=== PATIENT | female | born 1935 | race Caucasian/White ===

== ENCOUNTER 2016-08-02 07:41 | Inpatient (IN) | payer MEDICARE ==
[2016-08-02] MEDS ORDERED: Diazepam TAB(*) 5 MG ONE (08:50)
[2016-08-02] MEDS ORDERED: Clindamycin 900 MG IVPREMIX(* 900 MG/50 ML SDV IV ONE (09:00)
[2016-08-02] MEDS ORDERED: fentaNYL* 50 MCG/ML 2 ML VIAL (100 MCG VIAL) ONE (09:09)
[2016-08-02] MEDS ORDERED: Midazolam* 1 MG/ML 5 ML VIAL (5 MG) ONE (09:09)
[2016-08-02] MEDS ORDERED: Lidocaine 1% INJ* 10 MG/ML 30 ML SDV ONE (09:10)
[2016-08-02] MEDS ORDERED: Acetaminophen TAB* 325 MG PO PRN (10:29)
[2016-08-02] MEDS ORDERED: oxyCODONE/Acetamin 5/325 MG* TAB PO PRN (10:29)
--- NOTE | 2016-08-02 12:16 | RAD ---
HISTORY: Status post device implant COMPARISONS: June 17, 2014 VIEWS:1: Single frontal portable view of the chest at 11:25 AM FINDINGS: LINES AND TUBES: A left-sided pacemaker is noted. CARDIOMEDIASTINAL SILHOUETTE: The cardiomediastinal silhouette is normal for portable technique. PLEURA: The costophrenic angles are sharp. No pleural abnormalities are noted. There is no appreciable pneumothorax. LUNG PARENCHYMA: There is hyperinflation. ABDOMEN: The upper abdomen is clear. There is no subphrenic gas. BONES AND SOFT TISSUES: No bone or soft tissue abnormalities are noted. IMPRESSION: LEFT-SIDED PACEMAKER. HYPERINFLATION. NO ACTIVE CARDIOPULMONARY DISEASE.
[2016-08-02] MEDS: Clindamycin CAP* 150 MG PO SCH ×2 (16:13→21:20)
[2016-08-02] MEDS: Diltiazem TAB* 30 MG PO SCH (21:19)
--- NOTE | 2016-08-03 03:44 | OP ---
DATE OF OPERATION: 08/02/16 - ROOM #431 DATE OF : 37 SURGEON: Tylor Narvaez MD ANESTHESIA: Local anesthesia with conscious sedation. PRE-OP DIAGNOSES: 1. Sick sinus syndrome. 2. Atrial fibrillation. POST-OP DIAGNOSES: 1. Sick sinus syndrome. 2. Atrial fibrillation. OPERATIVE PROCEDURE: Dual-chamber pacemaker implantation. ESTIMATED BLOOD LOSS: Nil. COMPLICATIONS: None. INDICATIONS: The patient is an 81-year-old female with a history of atrial fibrillation. The patient has been followed by Dr. Means. The patient has been having episodes of atrial fibrillation with rapid ventricular response as well as bradycardia at night, which limits medical therapy. Permanent pacemaker was recommended for maximization of medical therapy. DESCRIPTION OF PROCEDURE: The patient was brought to the operating room in a fasting state. Informed consent had been obtained prior to procedure. All labs have been reviewed. The patient was placed supine on the procedure table. Her left deltopectoral area was cleaned and draped in usual fashion. 1% lidocaine was used for local anesthesia. Under ultrasound guidance, the axillary vein was entered by a modified Seldinger technique and a guidewire was placed. A second guidewire was placed in the same technique. A 4 cm incision was made in the pectoral area and blunt dissection was carried down to the pectoral fascia. A small pocket was fashioned for the pacemaker. Over the first guidewire, a 7-Bruneian sheath introducer was placed through which a right ventricular lead was advanced to the RV apex. The right ventricular lead is a Medtronic model 5076 serial #[id number]. It had an R wave sensitivity of 6.1, impedance 885 ohms, threshold 1 volts at 0.5 mV. The ventricular lead was then sutured to the pectoral fascia using 0 silk. Over the second guidewire, a 7-Bruneian sheath introducer was placed through which a right atrial lead was advanced to the high right atrium. The right atrial lead was a Medtronic model 5076 serial #[id number]. It had a P wave sensitivity of 4.7, impedance 720 ohms. Thresholds of 1.4 volt at 0.5 milliseconds. The atrial lead was then sutured to the pectoral fascia using 0 silk. The pocket was flushed with normal saline. A new generator was attached appropriately to the atrioventricular leads. The generator is a Medtronic model A2DR01 serial #[id number]. The device was placed into pocket. The surgical incision was closed in 2 layers. The subcutaneous tissue was closed with 2-0 and 3-0 absorbable sutures. The skin was closed with nidhi. The patient was returned to the holding area in stable condition. CC: Jersey Means MD* [id number]/[facility] #: [id number] MTDD
--- NOTE | 2016-08-03 08:06 | RAD ---
Indication: Pacemaker placement. 2 views of the chest including dual energy PA views demonstrates pacemaker leads in place. No pneumothorax is noted. Hyperinflated lung nina are noted. IMPRESSION: Pacemaker in place with no evidence of pneumothorax. Hyperinflated lung nina are noted.
[2016-08-03] MEDS ORDERED: Levothyroxine TAB* 100 MCG TAB PO SCH (09:00)
[2016-08-03] MEDS: Diltiazem TAB* 30 MG PO SCH (09:17)
[2016-08-03] MEDS: Clindamycin CAP* 150 MG PO SCH ×2 (09:17→14:04)
[2016-08-03 12:23] VITALS: BP 105/66
--- NOTE | 2016-08-04 12:42 | DS ---
DISCHARGE SUMMARY: DATE OF ADMISSION: 08/02/16 DATE OF DISCHARGE: 08/03/16 HISTORY OF PRESENT ILLNESS AND HOSPITAL COURSE: See Dr. Narvaez's complete note for full details. Ms. Jovel is an 81-year-old woman followed by Dr. Means for atrial fibrillation. She has been on rate-lowering medications, which led to bradycardia on Holter and she was referred for elective pacemaker implantation. The patient underwent a dual-chamber device implantation, 08/02/16, without complications. Overnight, the patient has been a little frustrated by her shoulder immobilizer , but denied shortness of breath or any trouble ambulating. She has had a little bit of trouble sleeping and the patient was present with her son and the patient had multiple questions about the device and activities afterwards and use of her shoulder immobilizer. PAST MEDICAL HISTORY: AFib/flutter with tachy-blari syndrome, dyslipidemia, hypothyroid disease, tuberculosis with treatment in the , Hurthle cell adenoma. PAST SURGICAL HISTORY: Includes partial thyroidectomy in 2009, arthroscopy of the knee. ALLERGIES: Include PENICILLIN. PHYSICAL EXAMINATION: On exam the day of discharge, the patient is 5 feet 8 inches, weighs 153 pounds with a BMI of 23, blood pressure was 105/66, pulse was 74, sats 98% on room air, and temperature 97.7, afebrile since admission. General Appearance: A tall, lean elderly woman seated in bed, a little bit anxious with lots of questions, but did not appear in acute medical distress. Psychologically, as mentioned a little anxious, but pleasant and cooperative. Neurologically, awake, alert, and oriented to person and place. Skin: Warm and dry. Incision in the left subclavian fossa free of hematoma, ecchymosis, or any signs of infection. No erythema. HEENT: Pupils are equal and round. Mucous membranes moist. Neck: Without increased JVP appreciated. Breath sounds are clear throughout in all lung nina. No wheezes, rales, or rhonchi. Coronary: S1, S2 regular. No murmurs or rubs. Abdomen: Active bowel sounds. Lower extremities were free of edema. DIAGNOSTIC STUDIES/LAB DATA: A 12-lead ECG today shows atrial pacing alternating with kootenai QRS and dual-chamber pacing. Monitor shows predominantly normal sinus rhythm 75 beats a minute. Chest x-ray today confirms both leads appear intact. No pneumothorax. Good lead placement. Pacemaker interrogation today confirmed she has a Medtronic Advisa DR device, she atrially paces 11% of the time, ventricularly paces 1.4% of the time. She is in AAI/DDD mode. Atrial sensing is 3.4 with an atrial lead impedance of 456 ohms and atrial pacing threshold of 0.5 volts at 0.4 milliseconds. Ventricular lead sensing is 10.9 millivolts with a ventricular impedance of 432 ohms and ventricular pacing threshold of 0.75 volts at 0.4 milliseconds. DISCHARGE MEDICATIONS: The patient will be discharged on: 1. Diltiazem 30 mg b.i.d.. 2. Clindamycin 150 mg t.i.d. 3. Tylenol p.r.n. 4. Synthroid 100 mcg a day. In addition to continuing her multiple supplements: 1. Vitamin D. 2. Colostrum. 3. Krill oil. 4. Methylsulfonylmethane. 5. MultiVites. 6. Probiotic. The patient will additionally resume Xarelto 20 mg a day. DISCHARGE FOLLOWUP: The patient will follow up with Dr. Narvaez in 1 week for wound check and following this, she can follow up with Dr. Means for her regular cardiology care. CC: Dr. Peewee Arnett; Dr. Tylor Narvaez; Dr. Means* [id number]/[facility] #: [id number] MTDD
== END 2016-08-03 14:10 | disposition home or self-care (01) | DRG 244 ==
LOC: CHICATH 07:41 → MEDTELE 10:29
PROVIDERS: ADMIT Specialist; ATTEND Specialist
PROC: 02HK3JZ Insertion of Pacemaker Lead into Right Ventricle, Percutaneous Approach (ICD-10-PCS; 2016-08-02)
PROC: 02H63JZ Insertion of Pacemaker Lead into Right Atrium, Percutaneous Approach (ICD-10-PCS; 2016-08-02)
PROC: 4B02XSZ Measurement of Cardiac Pacemaker, External Approach (ICD-10-PCS; 2016-08-02)
PROC: 0JH606Z Insertion of Pacemaker, Dual Chamber into Chest Subcutaneous Tissue and Fascia, Open Approach (ICD-10-PCS; principal; 2016-08-02 09:00)
DX: I49.5 Sick sinus syndrome (principal); I48.91 Unspecified atrial fibrillation; Z88.0 Allergy status to penicillin; E78.5 Hyperlipidemia, unspecified; E03.9 Hypothyroidism, unspecified; Z87.440 Personal history of urinary (tract) infections; Z86.11 Personal history of tuberculosis; Z80.0 Family history of malignant neoplasm of digestive organs; Z82.3 Family history of stroke
CPT/HCPCS: 33208; 71010; 71020; 93005; A9270-GY; C1785; C1898; J2250; J3010

== ENCOUNTER 2018-10-06 18:29 | Emergency (ER) | payer MEDICARE ==
[2018-10-06 19:30] LABS: ABS Basophils 0 10^3/ul (0-0.2); ABS Eosinophils 0 10^3/ul (0-0.6); ABS Lymphocytes 1.2 10^3/ul (1.0-4.8); ABS Neutrophils 7.1 10^3/ul (1.5-7.7); ABS Nucleated RBC 0 10^3/ul; Eosinophil % 0.3 %; Hematocrit 41 % (35-47); Hemoglobin 13.5 g/dl (12.0-16.0); Lymphocyte % 12.9 %; Mean Corpuscular HGB Conc 33 g/dl (31-36); Mean Corpuscular Hemoglobin 30 pg (27-31); Mean Corpuscular Volume 91 fL (80-97); Mean Platelet Volume 9.4 fL (7.4-10.4); Nucleated Red Blood Cells % 0; Platelet Count 154 10^3/ul (150-450); Red Blood Count 4.49 10^6/ul (4.00-5.40); Red Cell Distribution Width 14 % (10.5-15); White Blood Count 9.3 10^3/ul (3.5-10.8)
[2018-10-06 19:48] LABS: Albumin 3.5 g/dL (3.2-5.2); Albumin/Globulin Ratio 1.1 (1-3); C Reactive Protein 68.93 mg/L (<8.01); Calcium 8.8 mg/dL (8.6-10.3); EGFR African American 54.7 (>60); EGFR Non-African American 45.2 (>60); Globulin 3.2 g/dL (2-4); Magnesium 2.4 mg/dL (1.9-2.7); Potassium 4.5 mmol/L (3.5-5.0); Total Bilirubin 0.4 mg/dL (0.2-1.0); Total Protein 6.7 g/dL (6.4-8.9)
[2018-10-06] MEDS ORDERED: NS 0.9% 500 ML* 500 ML IV ONE (19:50)
--- NOTE | 2018-10-06 20:02 | ED ---
Altered Mental Status - HPI Summary HPI Summary: Patient sent from [facility] for confusion and increased urinary frequency with incontinence. Patient herself unaware that she is confused, states increased urinary frequency and incontinence 2 days, which she states is common when she has a urinary tract infection. Also complains of dry cough, sleepiness 2 days. Patient denies fever, sore throat, CP, SOB, N/V/D, abdominal pain, change in BM, vaginal symptoms. Medical history is hypothyroid , A. fib, UTI. - History Of Current Complaint Chief Complaint: EDUrogenitalProblems Stated Complaint: CONFUSION PER EMS Time Seen by Provider: 10/06/18 18:50 Hx Obtained From: Patient Onset/Duration: Unknown Timing: Constant Severity Initially: Mild Severity Currently: Mild Character: Confusion Aggravating Factor(s): Nothing Alleviating Factor(s): Nothing Associated Signs And Symptoms: Positive: Negative - Allergies/Home Medications Allergies/Adverse Reactions: Allergies Allergy/AdvReac Type Severity Reaction Status Date / Time Penicillins Allergy Rash Verified 10/06/18 18:45 Home Medications: Home Medications DEBROX 6.5% Otic* 5 drop BOTH EARS MONTHLY 10/06/18 [History Confirmed 10/06/18] Milk of Magnesia 1 dose PO DAILY 10/06/18 [History Confirmed 10/06/18] Preservision Areds 2 Softgel 1 dose PO DAILY 10/06/18 [History Confirmed ] PMH/Surg Hx/FS Hx/Imm Hx Endocrine/Hematology History: Reports: Hx Thyroid Disease - Hypothyroid Denies: Hx Anticoagulant Therapy, Hx Diabetes Cardiovascular History: Reports: Hx Pacemaker/ICD Denies: Hx Hypertension Respiratory History: Denies: Hx Asthma, Hx Chronic Obstructive Pulmonary Disease (COPD) History: Reports: Other Problems/Disorders - UTI Denies: Hx Renal Disease Sensory History: Denies: Hx Eye Prosthesis Opthamlomology History: Denies: Hx Legally Blind EENT History: Denies: Hx Deafness Neurological History: Denies: Hx Dementia, Hx Seizures Psychiatric History: Denies: Hx Autism, Hx Substance Abuse - Surgical History Surgery Procedure, Year, and Place: Right knee arthoscopic surgery to repair torn meniscus. Excision of benign lump under left collar bone - Immunization History Date of Tetanus Vaccine: Up to date Date of Influenza Vaccine: None, philosophically opposed Infectious Disease History: No Infectious Disease History: Denies: Hx Hepatitis, Hx Human Immunodeficiency Virus (HIV), History Other Infectious Disease, Traveled Outside the [place] in Last 30 Days - Social History Alcohol Use: None Substance Use Type: Reports: None Smoking Status (MU): Never Smoked Tobacco Review of Systems Constitutional: Negative Eyes: Negative ENT: Negative Cardiovascular: Negative Positive: Cough Gastrointestinal: Negative Positive: frequency, incontinence Musculoskeletal: Negative Skin: Negative Neurological: Negative Psychological: Normal All Other Systems Reviewed And Are Negative: Yes Physical Exam - Summary Physical Exam Summary: Neuro exam normal. Abdomen soft nontender. Lungs clear to auscultation bilaterally. RRR. Triage Information Reviewed: Yes Vital Signs On Initial Exam: Initial Vitals Pulse Resp Pulse Ox 81 18 93 10/06/18 18:40 10/06/18 18:40 10/06/18 18:40 Vital Signs Reviewed: Yes Appearance: Positive: Well-Appearing Skin: Positive: Warm Head/Face: Positive: Normal Head/Face Inspection Eyes: Positive: Normal Neck: Positive: Supple Respiratory/Lung Sounds: Positive: Clear to Auscultation Cardiovascular: Positive: Normal Abdomen Description: Positive: Nontender Musculoskeletal: Positive: Normal Neurological: Positive: Normal Psychiatric: Positive: Normal AVPU Assessment: Alert - Keerthi Coma Scale Best Eye Response: 4 - Spontaneous Best Motor Response: 6 - Obeys Commands Best Verbal Response: 5 - Oriented Coma Scale Total: 15 Diagnostics - Vital Signs Vital Signs Temp Pulse Resp BP Pulse Ox 10/06/18 19:50 79 12 110/65 94 10/06/18 19:11 74 28 119/63 91 10/06/18 19:09 75 13 93 10/06/18 18:42 100.7 F 77 18 98/63 93 10/06/18 18:41 78 18 98/63 93 10/06/18 18:40 81 18 93 - Laboratory Lab Results: Lab Results 10/06/18 10/06/18 10/06/18 Range/Units 19:25 19:25 19:25 WBC 9.3 (3.5-10.8) 10^3/ul RBC 4.49 (4.00-5.40) 10^6/ul Hgb 13.5 (12.0-16.0) g/dl Hct 41 (35-47) % MCV 91 (80-97) fL MCH 30 (27-31) pg MCHC 33 (31-36) g/dl RDW 14 (10.5-15) % Plt Count 154 (150-450) 10^3/ul MPV 9.4 (7.4-10.4) fL Neut % (Auto) 76.0 % Lymph % (Auto) 12.9 % [place] % (Auto) 10.4 % Eos % (Auto) 0.3 % Baso % (Auto) 0.4 % Absolute Neuts (auto) 7.1 (1.5-7.7) 10^3/ul Absolute Lymphs (auto) 1.2 (1.0-4.8) 10^3/ul Absolute Monos (auto) 1.0 H (0-0.8) 10^3/ul Absolute Eos (auto) 0 (0-0.6) 10^3/ul Absolute Basos (auto) 0 (0-0.2) 10^3/ul Absolute Nucleated RBC 0 10^3/ul Nucleated RBC % 0 Sodium 137 (135-145) mmol/L Potassium 4.5 (3.5-5.0) mmol/L Chloride 104 (101-111) mmol/L Carbon Dioxide 28 (22-32) mmol/L Anion Gap 5 (2-11) mmol/L BUN 31 H (6-24) mg/dL Creatinine 1.15 H (0.51-0.95) mg/dL Est GFR ( Amer) 54.7 (>60) Est GFR (Non-Af Amer) 45.2 (>60) BUN/Creatinine Ratio 27.0 H (8-20) Glucose 132 H (70-100) mg/dL Lactic Acid 0.8 (0.5-2.0) mmol/L Calcium 8.8 (8.6-10.3) mg/dL Magnesium 2.4 (1.9-2.7) mg/dL Total Bilirubin 0.40 (0.2-1.0) mg/dL AST 26 (13-39) U/L ALT 21 (7-52) U/L Alkaline Phosphatase 78 (34-104) U/L Troponin I 0.00 (<0.04) ng/mL C-Reactive Protein 68.93 H (<8.01) mg/L Total Protein 6.7 (6.4-8.9) g/dL Albumin 3.5 (3.2-5.2) g/dL Globulin 3.2 (2-4) g/dL Albumin/Globulin Ratio 1.1 (1-3) TSH Pending Result Diagrams: 10/06/18 19:25 10/06/18 19:25 Lab Statement: Any lab studies that have been ordered have been reviewed, and results considered in the medical decision making process. Altered Mental Statu Course/Dx - Course Course Of Treatment: Patient sent from [facility] for confusion and increased urinary frequency with incontinence. Patient herself unaware that she is confused, states increased urinary frequency and incontinence 2 days, which she states is common when she has a urinary tract infection. Also complains of dry cough, sleepiness 2 days. Patient denies fever, sore throat , CP, SOB, N/V/D, abdominal pain, change in BM, vaginal symptoms. Medical history is hypothyroid, A. fib, UTI. Physical exam: Patient alert and oriented. Response coherently and appropriately though slowly. Neuro exam normal. Abdomen soft nontender. Lungs clear to auscultation bilaterally. RRR. Vital signs within normal limits. CR 1.15. 500ml normal saline administered. Labs unremarkable. Chest x-ray unremarkable. EKG sinus rhythm. Patient has pacemaker. UA positive for UTI. Started on Bactrim here in the ED. Rx for same. Discharge patient to [facility]. - Diagnoses Provider Diagnoses: UTI (urinary tract infection) Discharge - Sign-Out/Discharge Documenting (check all that apply): Patient Departure Patient Received Moderate/Deep Sedation with Procedure: No - Discharge Plan Condition: Stable Disposition: HOME Patient Education Materials: Urinary Tract Infection in Women (ED) Forms: *Gen. Provider Communication Referrals: Peewee Arnett MD [Primary Care Provider] - Additional Instructions: Take antibiotics as directed. Follow-up with primary care. Return to the ED for any new or worsening symptoms. - Billing Disposition and Condition Condition: STABLE Disposition: Home
[2018-10-06 20:13] LABS: TSH (Thyroid Stimulating Horm) 0.99 mcIU/mL (0.34-5.60)
[2018-10-06 20:52] LABS: Influenza A Molecular NEGATIVE (Negative); Influenza B Molecular NEGATIVE (Negative)
[2018-10-06 22:29] LABS: Urine Appearance Cloudy; Urine Bacteria Absent (Absent); Urine Bilirubin Negative (Negative); Urine Blood Negative (Negative); Urine Color Yellow; Urine Glucose Negative (Negative); Urine Ketones Negative (Negative); Urine Nitrite Negative (Negative); Urine Protein Negative (Negative); Urine Red Blood Cell Absent (Absent); Urine Specific Gravity 1.021 (1.010-1.030); Urine Urobilinogen Negative (Negative); Urine White Blood Cell 3+(>20/hpf) (Absent)
[2018-10-06] MEDS ORDERED: Acetaminophen TAB* 325 MG PO ONE (22:32)
[2018-10-06] MEDS ORDERED: Sulfamethox/Trimethoprim DS 800/160* TAB PO ONE (23:25)
[2018-10-07] MEDS ORDERED: Sulfamethox/Trimethoprim DS 800/160* TAB PO ONE (00:11)
[2018-10-07] MEDS ORDERED: Sulfamethox/Trimethoprim DS 800/160* TAB ONE (00:12)
[2018-10-07 00:23] VITALS: BP 132/73
== END 2018-10-07 00:23 | disposition home or self-care (01) ==
LOC: ED 18:29
DX: N39.0 Urinary tract infection, site not specified (principal); Z87.440 Personal history of urinary (tract) infections; J32.2 Chronic ethmoidal sinusitis; R05 Cough; E03.9 Hypothyroidism, unspecified; I48.91 Unspecified atrial fibrillation; Z95.810 Presence of automatic (implantable) cardiac defibrillator; Z88.0 Allergy status to penicillin
CPT/HCPCS: 36415; 70450; 71046; 80053; 81003; 81015; 83605; 83735; 84443; 84484; 85025; 86140; 87086; 93005; 96360; 99284; A9270-GY